=== PATIENT | male | born 1965 ===

== ENCOUNTER 2025-05-02 12:55 | Outpatient (CLI) | payer MEDICARE, SELFPAY ==
--- NOTE | ~2025-05-02 | PE_ITS ---
EXAMINATION: PET_PETPSMAST_PT DATE: 05/02/2025 15:08 INDICATION: Prostate cancer TECHNIQUE: 6.623 mCi of Illucix Ga-68([id number]) was administered i.v. Low dose computed brendan graphy (CT) images were acquired from the base of the brain to the base of the brain to the proximal thighs for attenuation correction and anatomic localization. Positron emission tomography (PET) image s were acquired in the same distribution beginning 74 minutes after injection. Images including fused PET/CT images were reconstructed in axial, coronal, and sagittal planes. Automated exposure control technique was employed. The dose-length product was 968.41mGy-cm. COMPARISON: None FINDINGS: Head/neck: Typical pattern of symmetric physiologic increased activity in the lacrimal, parotid and submandibula r glands as well as along the mucosa of the nasal and oral cavities, pharynx and hypopharynx. No path ologically enlarged cervical lymphadenopathy or suspicious foci of increased uptake in the visualized head or neck. Chest: Respiratory motion and mild dependent atelectasis in both lungs. No suspicious pulmonary nodules, pne umonia, pulmonary edema or pleural effusion. Heart size is normal. Atherosclerotic coronary artery ca lcium location and aortic valve calcification. Change of prior mediastinal and coronary artery bypass grafting. Thoracic aorta is normal in caliber. No pathologically enlarged or PSMA avid thoracic lymp hadenopathy. Abdomen/pelvis/proximal thighs: Physiologic renal accumulation and excretion of activity in the kidneys, bladder and along portions o f ureters. Prostatomegaly measuring 4.6 x 3.3 cm with mild heterogeneous increased uptake most promin ent in the left peripheral zone with maximal SUV of 6.2 consistent with primary prostate cancer. Diff use hepatic steatosis. Normal degree and slightly heterogenous pattern of increased uptake throughout the liver and spleen without radiologic correlate or dominant PSMA avid lesion. The gallbladder, ariza creas and bilateral adrenal glands are normal. Moderate uptake scattered throughout the bowels with t ypical duodenal and proximal jejunal predominance and without radiologic correlate, also likely physi ologic. Normal appendix. No other abnormal foci of increased uptake or pathologically enlarged lympha denopathy in the abdomen, pelvis or proximal thighs. Musculoskeletal: Instrumented C5-C6 anterior spinal fusion with interbody bone graft cage and anterior plate-screw fix ation. Severe spondylosis at C6-C7 in the lumbar spine with moderate thoracic spondylosis. Small scle rotic bone island without abnormal PSMA uptake at the bilateral femoral heads. No suspicious lytic, b lastic or abnormally PSMA avid bone lesions. IMPRESSION: 1. Mild prostatic uptake most prominent in the left peripheral zone consistent with primary prostate cancer. No lesion suspicious for metastatic disease. Reviewed, dictated and finalized at location A.
--- OUTSIDE RECORDS SUMMARY | 2025-05-02 13:49 | XMS_ITS | Clinical Summary ---
Author Organization [facility] Address [address] [place] [address] Care Team Providers Care Hunter Name Role Phone Unavailable Primary Care Provider Unavailabl e Source Comments [facility],non-owned Affiliates and Associated Physician Practices is amultiple site organization consisting of ambulatory clinics and hospital sitesin [place], [place], [place] and [place]. This disclosure is being madepursuant to the Care Everywhere program and may not contain all information available regarding this patient. Last updated 18.[facility] Allergies Active Allergy Reactions Criticality Noted Date Comments Celecoxib Urticaria Medium 11/10/2021 Hmg-Coa-R Inhibitors Other Low 11/10/2021 Weakness Medications * Be aware that medications may not be up to date on this document. Alwaysverify current medications with the patient. lisinopril (PRINIVIL; ZESTRIL) 20 MG tablet Take 20 mg by mouth once daily Active aspirin (ASPIRIN) 81 MG chew tablet Take 81 mg by mouth once daily Active amLODIPine (NORVASC) 5 MG tablet Take 5 mg by mouth once daily Active metoprolol succinate XL 24hr (TOPROL XL) 25 MG tablet Take 25 mg by mouth once daily Active omeprazole (PRILOSEC) 40 MG capsule Take 40 mg by mouth daily before breakfast Active acetaminophen (TYLENOL) 500 MG tablet Take 2 (two) tablets by mouth every 6 hours as needed Maximum allowable Acetaminophen amount = 4 Grams (4000 mg) / 24 hours. 1 Active ibuprofen (MOTRIN) 800 MG tablet Take 1 (one) tablet by mouth every 6 hours as needed 12 tablet 1 1 Active gabapentin (NEURONTIN) 300 MG capsule Take 1 (one) capsule by mouth every 8 hours 90 capsule 1 1 Active lidocaine (LIDODERM) 5 % patch Apply 1 (one) patch to skin once daily 12 patch 1 Active folic acid (FOLVITE) 1 MG tablet Take 1 (one) tablet by mouth once daily 30 tablet 1 1 Active multivitamin daily tablet Take 1 (one) tablet by mouth once daily 1 Active thiamine (VITAMIN B-1) 100 MG tablet Take 1 (one) tablet by mouth once daily 30 tablet 1 1 Active oxyCODONE, immediate release, (ROXICODONE) 5 MG tablet Take 1 (one) tablet by mouth 3 times daily as needed for Pain 12 tablet 1 Active Active Problems Problem Noted Date Diagnosed Date Pleural effusion on left 11/15/2021 Subcutaneous emphysema 11/13/2021 Cardiac arrest 11/10/2021 Acute encephalopathy 11/10/2021 Respiratory acidosis 11/10/2021 Hypokalemia 11/10/2021 Hypomagnesemia 11/10/2021 Hypocalcemia 11/10/2021 Hypophosphatemia 11/10/2021 Shock 11/10/2021 Bradycardia 11/09/2021 Trauma 11/09/2021 Pneumothorax on right 11/09/2021 Resolved Problems Problem Noted Date Diagnosed Date Resolved Date Pneumonia due to organism 11/13/2021 Immunizations Immunization Administration Dates Next Due TDAP (7yrs+) 11/09/2021 Social History Tobacco Use Types Packs/Day Years Used Date Smoking Tobacco: Never Smokeless Tobacco: Never Alcohol Use Standard Drinks/Week Comments Yes 0 (1 standard drink = 0.6 oz pur e alcohol) beer and vodka AUDIT-C Answer Date Recorded Q1: How often do you have a drink containing alcohol? 4 or more times a week 11/10/2021 Q2: How many drinks containi ng alcohol do you have on a typical day when you are drinking? 3 or 4 Q3: How often do you have si x or more drinks on one occasion? 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 Gender Identity Not on file Sexual Orientation Not on file Last Filed Vital Signs Vital Sign Reading Time Taken Comments Blood Pressure 144/97 11/15/2021 7:17 AM MINE TECHNICIAN Pulse 93 11/15/2021 7:17 AM MINE TECHNICIAN Temperature 36.1 C (97 F) 11/15/2021 7:17 AM MINE TECHNICIAN Respiratory Rate 19 11/15/2021 7:17 AM MINE TECHNICIAN Oxygen Saturation 98% 11/15/2021 7:17 AM MINE TECHNICIAN Inhaled Oxygen Concentration 50% 11/10/2021 8 :00 AM MINE TECHNICIAN Weight 81.6 kg (180 lb) 11/09/2021 9:12 PM MINE TECHNICIAN Height 182.9 cm (6') 11/09/2021 9:12 PM MINE TECHNICIAN Body Mass Index 24.41 11/09/2021 9:12 PM MINE TECHNICIAN Plan of Treatment Health Maintenance Due Date Last Done Comments COLOGUARD (AGES 45-75) - COL ON CA SCREENING 1963 COLON MONITORING 1963 COLONOSCOPY - COLON CA SCREENING 1963 CT COLONOGRAPHY - COLON CA SCREENING 1963 Colorectal Cancer Screening 1963 FIT - COLON CA SCREENING 1963 FLEX SIG - COLON CA SCREENING 1963 HIV SCREENING 1978 HEPATITIS C SCREENING 12/23/1981 PNEUMOCOCCAL VACCINE 50+ (1 of 1 - PCV) 2013 ZOSTER VACCINE (1 of 2) 2013 COVID-19 VACCINE (2023-2 5 season) 2024 DEPRESSION SCREENING 11/23/2024 INFLUENZA VACCINE (Season Ended) 2025 DTAP/TDAP/TD VACCINES (2 - T d or Tdap) 11/09/2031 11/09/2021 Respiratory Syncytial Virus (RSV) Vaccine Pt: or over 60 yrs (1 - 1-dose 75+ series) 2038 HEPATITIS B VACCINE Aged Out No longe r eligible based on patient's age to complete this topic HIB VACCINE Aged Out No longer eligi ble based on patient's age to complete this topic HPV VACCINE Aged Out No longer eligi ble based on patient's age to complete this topic MENINGOCOCCAL (Group B) VACC INE SHARED DECISION-MAKING Aged Out No longer eligibl e based on patient's age to complete this topic MENINGOCOCCAL GROUPS A/C/Y/W VACCINE Aged Out No longer eligible b ased on patient's age to complete this topic Insurance ANTHEM ANTHEM Advance Directives * Full Code (Latest Code Status on File) Date Activated Date Inactivated Comments 11/09/2021 9:50 PM 11/15/2021 4:07 PM
--- OUTSIDE RECORDS SUMMARY | 2025-05-02 13:49 | XMS_ITS | Referral Summary ---
Author Organization [facility] Address [address] [place] [address] Care Team Providers Care Director Of Pupil Personnel Program Name Role Phone Bradley Sosa MD Primary Care Provider Encounters Date Type Department Care Team Description 04/04/2025 11:45 AM CDT Office Visit [facility] Cardiology [address] [place] [address] [phone] Sultan Sergio Cervantes MD S/P CABG (coronary artery bypass graft) (Primary Dx); Coronary artery disease of [place] artery of [place] heart with stable angina pectoris 03/29/2025 Telephone [facility] Cardiology [address] [place] [address] [phone] Sultan Sergio Cervantes MD Surgical Clearance from Last 3 Months Allergies Active Allergy Reactions Criticality Noted Date Comments Celecoxib Hives Medium 09/09/2016 Hives Pmyxkms-Dof-Tpj Reductase Inhibitors Muscle pain Medium 09/21/2018 Medications omeprazole (PriLOSEC) 40 mg capsule Take 1 capsule (40 mg total) by mouth daily Active aspirin 81 mg enteric coated tablet Take 1 tablet (81 mg total) by mouth daily 30 tablet 11 Active Additional Information Patient not taking.Reported on 04/04/2025 amLODIPine (NORVASC) 10 mg tablet Take 1 tablet (10 mg total) by mouth daily Active allopurinoL (ZYLOPRIM) 100 mg tablet Take 1 tablet (100 mg total) by mouth daily Active rosuvastatin (CRESTOR) 5 mg tablet Take 1 tablet (5 mg total) by mouth daily 4 Active metoprolol XL (TOPROL-XL) 25 mg extended release tablet Take 1 tablet (25 mg total) by mouth daily 90 tablet 3 4 Active metFORMIN (FORTAMET) 500 mg 24 hr tablet Take 1 tablet (500 mg total) by mouth 2 (two) times a day with meals Active oxyCODONE-acet aminophen (PERCOCET) 5-325 mg per tabletIndicati ons:Pain Take 2 tablets by mouth every 6 (six) hours as needed for pain 30 tablet 4 Active Additional Information Patient not taking.Reported on 04/04/2025 magnesium oxide (MAG-OX) 250 mg (150.8 mg elemental) tablet Take 1 tablet (250 mg total) by mouth daily Active oxyCODONE (ROXICODONE) 5 mg immediate release tablet Take 1 tablet (5 mg total) by mouth 3 (three) times a day as needed 5 Active tadalafiL (CIALIS) 20 mg tablet Take 1 tablet (20 mg total) by mouth daily as needed for erectile dysfunction 5 Active traZODone (DESYREL) 50 mg tablet Take 0.5 tablets (25 mg total) by mouth nightly Active ezetimibe (ZETIA) 10 mg tablet Take 1 tablet (10 mg total) by mouth daily 90 tablet 3 5 Active ezetimibe (ZETIA) 10 mg tablet TAKE ONE TABLET BY MOUTH DAILY 90 tablet 3 2 04/04/20 25 Discontin ued(Reord er) lisinopriL (PRINIVIL,ZEST RIL) 20 mg tablet Take 1 tablet (20 mg total) by mouth daily 04/04/20 25 Discontin ued(Other ) Active Problems Problem Noted Date Diagnosed Date NSTEMI (non-ST elevated myocardial infarction) 1 Non-ST elevation myocardial infarction (NSTEMI) 08/26/2021 Statin intolerance 08/26/2021 Angina pectoris, crescendo 08/25/2021 HTN (hypertension) 08/25/2021 HLD (hyperlipidemia) 08/25/2021 Alcohol use 08/25/2021 Tobacco use 08/25/2021 IBS (irritable bowel syndrome) 08/25/2021 GERD (gastroesophageal reflux disease) 1 Chronic neck pain 08/25/2021 Hyperglycemia 08/25/2021 S/P CABG (coronary artery bypass graft) Coronary artery disease of n ative artery of [place] heart with stable angina pectoris Social History Tobacco Use Types Packs/Day Years Used Date Smoking Tobacco: Former Cigarettes Smokeless Tobacco: Never Tobacco Cessation:Counseling Given: Not Answered Comments:Started smoking at age 22. Quit 2020. At heaviest less than one pack per day. AUDIT-C Answer Date Recorded Q1: How often do you have a drink containing alcohol? 4 or more times a week 08/22/2024 Q2: How many drinks containi ng alcohol do you have on a typical day when you are drinking? 3 or 4 Q3: How often do you have si x or more drinks on one occasion? Never 08/22/2024 Personal Safety Answer Date Recorded Have you ever been in or are you currently in a harmful physical or emotional relationship or is someone making you feel afraid or unsafe? 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 Gender Identity Not on file Sexual Orientation Not on file Last Filed Vital Signs Vital Sign Reading Time Taken Comments Blood Pressure 132/82 04/04/2025 11:53 AM CDT Pulse 100 04/04/2025 11:53 AM CDT Temperature 36.8 C (98.3 F) 08/22/2024 9:35 AM CDT Respiratory Rate 16 08/22/2024 10:05 AM CDT Oxygen Saturation 98% 04/04/2025 11:53 AM CDT Inhaled Oxygen Concentration - - Weight 80.3 kg (177 lb) 04/04/2025 11:53 AM CDT Height 175.3 cm (5' 9) 08/22/2024 5:57 AM CDT Body Mass Index 26.14 08/22/2024 5:57 AM CDT Plan of Treatment Not on file Medical Devices Implanted Type Area Sinker Puller Device Identifier Shelf Expiration Date Model / Serial / Lot Hardware Neck Dental Right: Tooth [employer] 45418-39 Perclose 6fr Suture Mediate Knot Push Vascular Device Closure - [id number] Implanted:Qty: 1 on 08/26/2021 by Martin Gan MD at [facility] [employer] 03/22/2023 [id number] / / [id number] [employer]/C R Bard Ventralex St Sepra Sorbaflex 2.5in [place] Open Bioresorbable [id number] - [id number] Implanted:Qty: 1 on 08/22/2024 by Sean Snyder MD at [facility] N/A: Umbilical [employer]/C R Bard [id number] 12/20/2025 [id number] / / [id number] Procedures Procedure Name Priority Date/Time Associated Diagnosis Comments ECG 12-LEAD Routine 04/04/2025 12:01 PM CDT S/P CABG (coronary artery bypass graft) POCT LIPID PANEL Routine 04/04/2025 12:0 0 PM CDT Coronary artery disease of [place] artery of [place] heart with stable angina pectoris from Last 3 Months Results * ECG 12 lead (04/04/2025 12:01 PM CDT) Sultan Sergio Cervantes MD ECG ORDERABLES Final Result * (ABNORMAL) POCT lipid panel (04/04/2025 12:00 PM CDT) HDL, POC 33(A) >=40 mg/dL Triglycerides, POC 377(A) <=149 mg/dL LDL Cholesterol POC 79 <=129 mg/dL Chol/HDL Ratio, POC 5.6 NONE Non-HDL Cholesterol, POC 154 NONE mg/dL Cholesterol Total, POC 188 30 - 199 mg/dL Capillary blood 04/04/2025 1 2:00 PM CDT Sultan Sergio Cervantes MD POINT OF CARE TEST ORDERABLES Final Result from Last 3 Months Insurance AETNA MEDICARE GOLD AETNA MEDICARE GOLD [facility] Advance Directives For more information, please contact: [phone] * Full Code (Latest Code Status on File) Date Activated Date Inactivated Comments 08/27/2021 3:11 PM 09/01/2021 5:37 PM * Full Code Date Activated Date Inactivated Comments 08/25/2021 3:24 PM 08/27/2021 3:11 PM Care Teams Director Of Pupil Personnel Program Relationship Specialty Start Date End Date Bradley Sosa MD [address] [place] [address] DR MOSLEY [address] [place] [id number] PCP - General 06/11/20
--- OUTSIDE RECORDS SUMMARY | 2025-05-02 13:49 | XMS_ITS | Clinical Summary ---
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 Gender Identity Not on file Sexual Orientation Not on file Plan of Treatment Health Maintenance Due Date Last Done Comments Hepatitis C Virus (HCV) Screening 1965 Colonoscopy 2008 Colorectal Cancer Screening 2008 Cologuard 2013 Immunochemical Fecal Occult Blood 2013 Pneumococcal Immunization (5 0+ years) (1 of 1 - PCV) 2013 Zoster Immunization (1 of 2) 2013 PSA Discussion 2018 Influenza Immunization (#1) 2024 SARS-COV-2 Immunization ( season) 2024 Respiratory Syncytial Virus (RSV) Immunization (Adult) (1 - 1-dose 75+ series) 2038 DTaP/Tdap/Td Immunization Discontinued 06/25/2017 TdaP Immunization Completed 06/25/2017 Hepatitis B Immunization Aged Out No longer eligible based on patient's age to complete this topic Meningococcal Immunization (ACWY) Aged Out No longer eligible based on patient's age to complete this topic Pneumococcal Immunization Combined Aged Out No longer eligible based on patient's age to complete this topic Rotavirus Immunization Aged Out No lo nger eligible based on patient's age to complete this topic
--- OUTSIDE RECORDS SUMMARY | 2025-05-02 13:49 | XMS_ITS | Clinical Summary ---
Author Organization [facility] Address [address] [place] [phone] Care Team Providers Care Stain Dipper Name Role Phone Bradley Sosa MD Primary Care Provider Allergies Active Allergy Reactions Criticality Noted Date Comments Celecoxib Hives Medium 09/09/2016 Hives Mimczhg-Peg-Bgw Reductase Inhibitors Muscle pain Medium 09/21/2018 Medications omeprazole (PriLOSEC) 40 mg capsule Take 1 capsule (40 mg total) by mouth daily Active aspirin 81 mg enteric coated tablet Take 1 tablet (81 mg total) by mouth daily 30 tablet 11 1 Active Additional Information Patient not taking.Reported on [...] bowel syndrome) 08/25/2021 GERD (gastroesophageal reflux disease) Chronic neck pain 08/25/2021 Hyperglycemia 08/25/2021 S/P CABG (coronary artery bypass graft) Coronary artery disease of n ative artery of [place] heart with stable angina pectoris Encounters Date Type Department Care Team Description 04/04/2025 11:45 AM CDT Office Visit [facility] Cardiology [address] [place] [phone] Sultan Sergio Cervantes MD S/P CABG (coronary artery bypass graft) (Primary Dx); Coronary artery disease of [place] artery of [place] heart with stable angina pectoris 03/29/2025 Telephone [facility] Cardiology [address] [place] [address] Sultan Sergio Cervantes MD Surgical Clearance from Last 3 Months Surgical History Surgery Date Site/Laterality Comments CERVICAL FUSION ABDOMINAL SURGERY as a child, esophageal growth removed SPINE SURGERY laser spine surgery removed bone spurs. C3-C6. with hardware, multiple spine surgeries CORONARY ARTERY BYPASS GRAFT 11/23/2021 - 11/22/2022 x5 vessels H UMBILICAL HERNIA REPAIR 08/22/2024 with mess placement Medical History Medical History Date Comments Chronic neck pain Hypertension HLD (hyperlipidemia) Tobacco use IBS (irritable bowel syndrome) GERD (gastroesophageal reflux disease) Alcohol use Coronary artery disease of n ative artery of [place] heart with stable angina pectoris HTN (hypertension) 08/25/2021 NSTEMI (non-ST elevated myocardial infarction) ( HCC) 08/27/2021 S/P CABG (coronary artery bypass graft) Prediabetes Family History Medical History Relation Name Comments Heart attack Brother Heart disease Father Heart disease Mother Hypertension Mother Relation Name Status Comments Brother Father Mother Social History Tobacco Use Types Packs/Day Years [...] on file 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 Gender Identity Not on file Sexual Orientation Not on file Obstetrics History Last Filed Vital Signs Vital Sign Reading [...] 08/22/2024 5:57 AM CDT Plan of Treatment Health Maintenance Due Date Last Done Comments Colon Cancer Screening-Colonoscopy 1963 Depression Screening 1963 Hepatitis C Screening 1963 Prostate Cancer Screening-PSA 1963 Hepatitis B Screening 1981 Regular Well Visit/Exam 18-64 1981 Pneumococcal vaccine <65 (1 of 2 - PCV) 1982 Zoster Vaccine (1 of 2) 2013 Covid-19 Vaccine (3 - season) 2024, 04/15/2021 Influenza Vaccine (Season Ended) 2025 DTaP/Tdap/Td Vaccine (3 - Td or Tdap) 11/09/2031, 06/25/2017 Medical Devices Implanted Type Area Per Diem Rn Device Identifier Shelf Expiration Date Model / Serial / Lot Hardware Neck Dental Right: Tooth [employer] 71735-86 Perclose 6fr Suture Mediate Knot Push Vascular Device Closure - [id number] Implanted:Qty: 1 on 08/26/2021 by Martin Gan MD at [facility] [employer] 03/22/2023 [id number] / / [id number] [employer]/C R Bard Ventralex St Sepra Sorbaflex 2.5in [place] Open Bioresorbable [id number] - [id number] Implanted:Qty: 1 on 08/22/2024 by Sean Snyder MD at [facility] N/A: Umbilical [employer]/C R Bard [id number] 12/20/2025 [id number] / / [id number] Procedures Procedure Name Priority Date/Time Associated Diagnosis Comments ECG 12-LEAD Routine 04/04/2025 12:01 PM CDT S/P CABG (coronary artery bypass graft) POCT LIPID PANEL Routine 04/04/2025 12:0 0 PM CDT Coronary artery disease of [place] artery of [place] heart with stable angina pectoris from Last 3 Months Results * ECG 12 lead (04/04/2025 12:01 PM CDT) us Sultan Sergio Cervantes MD ECG ORDERABLES Final [...] Last 3 Months Insurance AETNA MEDICARE GOLD [facility] MED[facility] Address: [facility] [id number] [place] [phone] AETNA MEDICARE GOLD [facility] Address: [address] [place] [address] Advance Directives For more information, please contact: [phone] * Full Code (Latest Code Status on File) Date Activated Date Inactivated Comments 08/27/2021 3:11 PM 09/01/2021 5:37 PM * Full Code Date Activated Date Inactivated Comments 08/25/2021 3:24 PM 08/27/2021 3:11 PM Care Teams Stain Dipper Relationship Specialty Start Date End Date Bradley Sosa MD [address] [place] [address] DR MOSLEY [address] [place] [address] PCP - General 06/11/20
== END 2025-05-02 12:56 | disposition home or self-care (01) ==
LOC: ANHIMG 12:58
PROVIDERS: Visit Provider Urology
DX: C61 Malignant neoplasm of prostate (principal)
CPT/HCPCS: 78815; A9596